=== PATIENT | male | born 1995 | race African-American/Black ===

== ENCOUNTER 2024-03-15 16:55 | Emergency (ER) | payer MEDICAID ==
[~2024-03-15] VITALS: Ht 182.9 cm; Wt 88.0 kg
[2024-03-15 17:08] VITALS: O2SAT 98
[2024-03-15 17:55] VITALS: BP 128/77; PULSE 72; RESP 16; TEMP 98
== END 2024-03-15 18:08 | disposition home or self-care (01) ==
LOC: ER 17:42
DX: S61.310A Laceration without foreign body of right index finger with damage to nail, initial encounter (principal); X58.XXXA Exposure to other specified factors, initial encounter; Y93.89 Activity, other specified; Y92.89 Other specified places as the place of occurrence of the external cause; Y99.8 Other external cause status
CPT/HCPCS: 99281; Z7610 ×2

== ENCOUNTER 2024-11-26 17:19 | Emergency (ER) | payer MEDICAID, OTHER ==
[~2024-11-26] VITALS: Ht 180.3 cm; Wt 84.0 kg
[2024-11-26 17:32] VITALS: O2SAT 97
[2024-11-26 18:31] VITALS: TEMP 36.8
[2024-11-26] MEDS: MORPHINE SULFATE 4 MG/ML INJ (FOR IV/IM USE) IV STA (18:32)
[2024-11-26] MEDS: SODIUM CHLORIDE 0.9% 1,000 ML IV ONE (18:33)
[2024-11-26] MEDS: LIDOCAINE HCL 1% 20ML VIAL INFIL ONE (18:34)
[2024-11-26] MEDS: MIDAZOLAM HCL 2 MG/2 ML VIAL IV ONE (18:35)
[2024-11-26 18:43] LABS: BASOPHILS % 0.4 % (0.0-2.0); EOSINOPHILS % 0.9 % (0.0-5.0); HEMATOCRIT. 45.6 % (42.0-52.0); HEMOGLOBIN. 15.3 g/dL (14.0-18.0); LYMPHOCYTES % 14.8 % (20.0-50.0); MEAN CORPUSCULAR HEMOGLOBIN 27.8 pg (28.0-32.0); MEAN CORPUSCULAR HGB CONC 33.5 g/dL (31.0-37.0); MEAN PLATELET VOLUME 8.3 fl (7.4-10.4); MONOCYTES % 4.7 % (2.0-8.0); NEUTROPHILS % 79.2 % (40.0-76.0); PLATELET 262 x1000/uL (130-400); RED BLOOD CELL COUNT 5.49 mill/uL (4.7-6.1); RED CELL DISTRIBUTION WIDTH 13.4 % (11.6-14.6); WHITE BLOOD COUNT 13.2 x1000/uL (4.5-11.0)
[2024-11-26 18:55] LABS: CARBON DIOXIDE 25 mEq/L (21-32); CHLORIDE 101 mEq/L (98-107); POTASSIUM 3.7 mEq/L (3.5-5.1); SODIUM 138 mEq/L (136-145)
[2024-11-26 18:56] LABS: CALCIUM 10.1 mg/dL (8.7-10.4)
[2024-11-26 19:00] LABS: CREATININE 1.2 mg/dL (0.6-1.3)
[2024-11-26 19:01] LABS: GLUCOSE 102 mg/dL (70-105); UREA NITROGEN BLOOD 10 mg/dL (9-23)
[2024-11-26 19:02] LABS: ALANINE AMINOTRANSFERASE 41 IU/L (10-49); ALBUMIN 4.6 g/dL (3.2-4.8); ASPARTATE AMINOTRANSFERASE 45 IU/L (<34)
[2024-11-26 19:03] LABS: BILIRUBIN DIRECT 0.1 mg/dL (<=3.0); BILIRUBIN TOTAL 0.5 mg/dL (0.1-1.0); PROTEIN TOTAL 7.7 g/dL (6.0-8.3)
[2024-11-26 19:04] LABS: TROPONIN I HIGH SENSITIVITY < 4 ng/L (3.0-53)
[2024-11-26] MEDS: ONDANSETRON HCL 4MG/2ML INJ IV STA (19:18)
[2024-11-26] MEDS: TETANUS, DIPHTHERIA, PERTUSSIS VAC/PF 0.5ML (>10YR OLD) IM ONE (19:19)
[2024-11-26] MEDS ORDERED: HYDR-4001 MT (20:14)
[2024-11-26 20:24] VITALS: BP 147/89; PULSE 82; RESP 10; O2SAT 100
== END 2024-11-26 21:06 | disposition home or self-care (01) ==
LOC: ER 17:19
DX: S02.31XA Fracture of orbital floor, right side, initial encounter for closed fracture (principal); Z98.890 Other specified postprocedural states; V89.9XXA Person injured in unspecified vehicle accident, initial encounter; Y93.55 Activity, bike riding; Y92.89 Other specified places as the place of occurrence of the external cause; Y99.8 Other external cause status
CPT/HCPCS: 80076; 80048; 83690; 85025; 84484; 36415; 71045; 72170; 70450; 70486; 72125; 90715; 12015; 90471; 96361; 96374; 99285; J3490; J2270; J7030; Z7610 ×2; 96372

== ENCOUNTER 2024-11-28 12:16 | Emergency (ER) | payer MEDICAID, OTHER ==
[~2024-11-28] VITALS: Ht 180.3 cm; Wt 85.0 kg
[~2024-11-28 12:16] MED LIST: HYDR-4001 MT
[2024-11-28 12:26] VITALS: O2SAT 100
[2024-11-28 12:28] VITALS: BP 133/82; PULSE 77; RESP 16; TEMP 37; O2SAT 100
== END 2024-11-28 14:50 | disposition home or self-care (01) ==
LOC: ER 12:16
DX: S01.81XD Laceration without foreign body of other part of head, subsequent encounter (principal); Z88.0 Allergy status to penicillin; Z98.890 Other specified postprocedural states; X58.XXXD Exposure to other specified factors, subsequent encounter
CPT/HCPCS: 99281; Z7610; A6449

== ENCOUNTER 2024-12-03 11:49 | Emergency (ER) | payer OTHER ==
[~2024-12-03] VITALS: Ht 182.9 cm; Wt 83.9 kg
[2024-12-03 11:50] VITALS: O2SAT 98
[2024-12-03 11:54] VITALS: BP 140/84; PULSE 61; RESP 18; TEMP 36.6; O2SAT 100
== END 2024-12-03 12:59 | disposition home or self-care (01) ==
LOC: ER 11:49
DX: S01.111D Laceration without foreign body of right eyelid and periocular area, subsequent encounter (principal); X58.XXXD Exposure to other specified factors, subsequent encounter; Z88.0 Allergy status to penicillin
CPT/HCPCS: 99281; Z7610